=== PATIENT | female | born 1990 | race Caucasian/White ===

== ENCOUNTER 2017-02-16 01:46 | Emergency (ER) | payer MEDICAID ==
[2017-02-16 02:24] LABS: BASOPHIL % 1.5 % (0-2); PLATELET COUNT 273 x10^3mcL (130-400); RED CELL DISTRIBUTION WIDTH 12.9 % (11.5-14.5)
[2017-02-16 02:29] LABS: CALCIUM 9.3 mg/dL (8.5-10.1); CHLORIDE SERUM 107 mmol/L (98-107); CREATININE SERUM 0.8 mg/dL (0.6-1.0); GFR1 > 60 mL/min; GLUCOSE SERUM 93 mg/dL (74-106); POTASSIUM SERUM 4.4 mmol/L (3.5-5.1); SODIUM SERUM 142 mmol/L (136-145)
[2017-02-16 02:33] LABS: ALBUMIN 3.9 g/dL (3.4-5.0); ALKALINE PHOSPHATASE 57 U/L (46-116); ALT/SGPT 17 U/L (14-59); AMYLASE 65 U/L (25-115); AST/SGOT 20 U/L (15-37); BILIRUBIN TOTAL 0.45 mg/dL (0.20-1.00); LIPASE 131 IU/L (73-393); TOTAL PROTEIN, SERUM 7.5 g/dL (6.4-8.2)
[2017-02-16 04:27] VITALS: BP 97/61
== END 2017-02-16 04:27 | disposition home or self-care (01) ==
LOC: ED 01:46
PROVIDERS: Emergency Medicine
DX: R10.13 Epigastric pain (principal); K21.9 Gastro-esophageal reflux disease without esophagitis
CPT/HCPCS: 36415

== ENCOUNTER 2017-03-07 11:31 | Emergency (ER) | payer MEDICAID ==
[2017-03-07 12:45] LABS: BASOPHIL % 0.3 % (0-2); PLATELET COUNT 281 x10^3mcL (130-400); RED CELL DISTRIBUTION WIDTH 13.6 % (11.5-14.5)
[2017-03-07 12:50] LABS: CALCIUM 9.9 mg/dL (8.5-10.1); CARBON DIOXIDE 25.7 mmol/L (21-32); CHLORIDE SERUM 109 mmol/L (98-107); CREATININE SERUM 0.7 mg/dL (0.6-1.0); GFR1 > 60 mL/min; GLUCOSE SERUM 89 mg/dL (74-106); POTASSIUM SERUM 4.2 mmol/L (3.5-5.1); SODIUM SERUM 146 mmol/L (136-145)
[2017-03-07 12:55] LABS: ALKALINE PHOSPHATASE 64 U/L (46-116); ALT/SGPT 25 U/L (14-59); AST/SGOT 18 U/L (15-37); BILIRUBIN TOTAL 0.63 mg/dL (0.20-1.00); CHOLESTEROL 133 mg/dL (<200); HDL CHOLESTEROL 44 mg/dL (40-60); PHOSPHOROUS 3.3 mg/dL (2.5-4.9); TOTAL PROTEIN, SERUM 7.7 g/dL (6.4-8.2); URIC ACID 6.2 mg/dL (2.6-6.0)
[2017-03-07 14:23] VITALS: BP 106/74
== END 2017-03-07 14:23 | disposition home or self-care (01) ==
LOC: ED 11:31
PROVIDERS: Emergency Medicine
DX: R07.89 Other chest pain (principal); F32.9 Major depressive disorder, single episode, unspecified
CPT/HCPCS: 36415; 83880; J1885; Q0092

== ENCOUNTER 2017-03-13 21:59 | Emergency (ER) | payer MEDICAID ==
[2017-03-13 22:49] LABS: BASOPHIL % 0.6 % (0-2); PLATELET COUNT 304 x10^3mcL (130-400)
[2017-03-13 23:00] LABS: CALCIUM 9.3 mg/dL (8.5-10.1); CHLORIDE SERUM 104 mmol/L (98-107); CREATININE SERUM 0.8 mg/dL (0.6-1.0); GFR1 > 60 mL/min; GLUCOSE SERUM 87 mg/dL (74-106); POTASSIUM SERUM 3.4 mmol/L (3.5-5.1); SODIUM SERUM 142 mmol/L (136-145)
[2017-03-13 23:03] LABS: ALBUMIN 4.1 g/dL (3.4-5.0); ALKALINE PHOSPHATASE 64 U/L (46-116); ALT/SGPT 63 U/L (14-59); AST/SGOT 28 U/L (15-37); BILIRUBIN TOTAL 0.37 mg/dL (0.20-1.00); TOTAL PROTEIN, SERUM 7.9 g/dL (6.4-8.2)
[2017-03-14 00:34] VITALS: BP 108/77
== END 2017-03-14 00:34 | disposition home or self-care (01) ==
LOC: ED 21:59
PROVIDERS: Emergency Medicine
DX: R42 Dizziness and giddiness (principal)
CPT/HCPCS: J7030

== ENCOUNTER 2017-04-04 09:47 | Emergency (ER) | payer MEDICAID ==
[~2017-04-04] VITALS: Ht 157.5 cm; Wt 73.5 kg
[2017-04-04 10:24] LABS: BASOPHIL % 0.5 % (0-2); PLATELET COUNT 288 x10^3mcL (130-400); RED CELL DISTRIBUTION WIDTH 13.6 % (11.5-14.5)
[2017-04-04 11:24] LABS: CARBON DIOXIDE 26.1 mmol/L (21-32); CHLORIDE SERUM 108 mmol/L (98-107); CREATININE SERUM 0.7 mg/dL (0.6-1.0); GFR1 > 60 mL/min; GLUCOSE SERUM 90 mg/dL (74-106); POTASSIUM SERUM 4.2 mmol/L (3.5-5.1); SODIUM SERUM 142 mmol/L (136-145)
[2017-04-04 11:29] LABS: ALBUMIN 3.6 g/dL (3.4-5.0); ALKALINE PHOSPHATASE 64 U/L (46-116); ALT/SGPT 19 U/L (14-59); AST/SGOT 14 U/L (15-37); BILIRUBIN TOTAL 0.5 mg/dL (0.20-1.00); TOTAL PROTEIN, SERUM 7.6 g/dL (6.4-8.2)
[2017-04-04 11:54] VITALS: BP 114/85
== END 2017-04-04 11:54 | disposition home or self-care (01) ==
LOC: ED 09:47
PROVIDERS: Emergency Medicine
DX: R07.89 Other chest pain (principal); R51 Headache
CPT/HCPCS: 36415; J1885; Q0092

== ENCOUNTER 2017-05-03 09:08 | Emergency (ER) | payer MEDICAID ==
[2017-05-03 10:47] VITALS: BP 123/92
== END 2017-05-03 10:47 | disposition home or self-care (01) ==
LOC: ED 09:08
DX: J32.9 Chronic sinusitis, unspecified (principal); K21.9 Gastro-esophageal reflux disease without esophagitis; J30.2 Other seasonal allergic rhinitis
CPT/HCPCS: J1885

== ENCOUNTER 2017-06-13 14:55 | Emergency (ER) | payer MEDICAID ==
[2017-06-13 15:00] VITALS: BP 124/73
== END 2017-06-13 17:33 | disposition left against medical advice (07) ==
LOC: ED 14:55
DX: N93.9 Abnormal uterine and vaginal bleeding, unspecified (principal); K21.9 Gastro-esophageal reflux disease without esophagitis
CPT/HCPCS: 36415

== ENCOUNTER 2017-06-19 18:27 | Emergency (ER) | payer MEDICAID ==
[2017-06-19 19:37] LABS: BASOPHIL % 0.4 % (0-2); PLATELET COUNT 353 x10^3mcL (130-400); RED CELL DISTRIBUTION WIDTH 13.4 % (11.5-14.5)
[2017-06-19 19:46] LABS: AMPHETAMINE QUAL UR NONE DETECTED (NEG <=1000)
[2017-06-19 19:50] LABS: CALCIUM 9.4 mg/dL (8.5-10.1); CARBON DIOXIDE 26.4 mmol/L (21-32); CHLORIDE SERUM 106 mmol/L (98-107); CREATININE SERUM 0.6 mg/dL (0.6-1.0); GFR1 > 60 mL/min; GLUCOSE SERUM 84 mg/dL (74-106); SODIUM SERUM 141 mmol/L (136-145)
[2017-06-19 19:54] LABS: ALBUMIN 4.1 g/dL (3.4-5.0); ALKALINE PHOSPHATASE 59 U/L (46-116); ALT/SGPT 18 U/L (14-59); AST/SGOT 13 U/L (15-37); BILIRUBIN TOTAL 0.44 mg/dL (0.20-1.00); LIPASE 102 IU/L (73-393); TOTAL PROTEIN, SERUM 8.1 g/dL (6.4-8.2)
[2017-06-19 21:37] VITALS: BP 118/76
== END 2017-06-19 21:37 | disposition home or self-care (01) ==
LOC: ED 18:27
PROVIDERS: Emergency Medicine
DX: K21.9 Gastro-esophageal reflux disease without esophagitis (principal); N39.0 Urinary tract infection, site not specified
CPT/HCPCS: 83880; 85378; J3490; Q0092

== ENCOUNTER 2017-10-15 16:51 | Emergency (ER) | payer MEDICAID, OTHER ==
[~2017-10-15] VITALS: Ht 157.5 cm; Wt 73.9 kg
[2017-10-15 16:55] VITALS: Ht 157.5 cm; Wt 73.9 kg
[2017-10-15 18:56] VITALS: BP 115/77
== END 2017-10-15 18:56 | disposition home or self-care (01) ==
LOC: ED 16:51
DX: J02.8 Acute pharyngitis due to other specified organisms (principal); K21.9 Gastro-esophageal reflux disease without esophagitis
CPT/HCPCS: J1100

== ENCOUNTER 2017-11-23 17:36 | Emergency (ER) | payer MEDICAID, OTHER ==
[~2017-11-23] VITALS: Ht 157.5 cm; Wt 72.6 kg
[2017-11-23 18:02] VITALS: Ht 157.5 cm; Wt 72.6 kg
[2017-11-23 20:09] VITALS: BP 121/83
== END 2017-11-23 20:18 | disposition home or self-care (01) ==
LOC: ED 17:36
DX: G44.209 Tension-type headache, unspecified, not intractable (principal); K21.9 Gastro-esophageal reflux disease without esophagitis

== ENCOUNTER 2018-06-24 00:31 | Emergency (ER) | payer MEDICAID, OTHER ==
[~2018-06-24] VITALS: Ht 157.5 cm; Wt 90.7 kg
[2018-06-24 00:36] VITALS: Ht 157.5 cm; Wt 90.7 kg
[2018-06-24 01:21] VITALS: BP 121/90
== END 2018-06-24 01:21 | disposition home or self-care (01) ==
LOC: ED 00:31
DX: O26.893 Other specified pregnancy related conditions, third trimester (principal); L02.31 Cutaneous abscess of buttock; Z3A.30 30 weeks gestation of pregnancy

== ENCOUNTER 2020-08-13 06:01 | Emergency (ER) | payer MEDICAID, SELFPAY, OTHER ==
[~2020-08-13] VITALS: Ht 157.5 cm; Wt 95.0 kg
[2020-08-13 06:03] VITALS: Ht 157.5 cm; Wt 95.0 kg
[2020-08-13 07:53] LABS: microscopic required? YES; urine erythrocyte TRACE (NEGATIVE)
[2020-08-13 08:11] VITALS: BP 110/74
== END 2020-08-13 08:12 | disposition home or self-care (01) ==
LOC: ED 06:01
PROVIDERS: Emergency Medicine
DX: U07.1 COVID-19 (principal); E86.0 Dehydration
CPT/HCPCS: J7030; U0003